=== PATIENT | female | born 1955 ===

== ENCOUNTER 2020-12-14 21:29 | Inpatient (IN) | payer MEDICARE, OTHER ==
[~2020-12-14] VITALS: Ht 157.5 cm; Wt 90.9 kg
--- NOTE | 2020-12-14 21:37 | NUR ---
PATIENT RA SAT 83 WALKING FROM EMS [facility] TO ED [facility]. PATIENT PLACED ON 3L O2 AND SAT INCRESASE TO 89
[2020-12-14] MEDS ORDERED: CALC-680 PO (22:03)
[2020-12-14] MEDS ORDERED: METO25TA91 PO (22:03)
[2020-12-14] MEDS ORDERED: ATOR-2 PO (22:03)
--- NOTE | 2020-12-14 22:30 | NUR ---
PATIENT RESTING ON GURCIARA, NAD AT THIS TIME, DENIES ANY NEEDS, VSS, WILL CONTINUE TO MONITOR.
--- NOTE | 2020-12-14 22:35 | NUR ---
Pt to be admitted to MEDICAL, room 339. Report called to DIANE.
[2020-12-14] MEDS ORDERED: PHARMACY MAY ADJ FOR RENAL FX MC PRN (23:30)
[2020-12-14 23:47] VITALS: BP 143/94
[2020-12-15] MEDS ORDERED: ACETAMINOPHEN 325 MG TABLET PO PRN
[2020-12-15] MEDS ORDERED: ONDANSETRON 2MG/ML, 2ML IVPush PRN
[2020-12-15 01:27] VITALS: BP 99/45
[2020-12-15] MEDS: ASCORBIC ACID 500 MG TABLET PO SCH ×3 (02:19→21:17)
[2020-12-15] MEDS: MELATONIN 5 MG TABLET PO SCH ×2 (02:19→21:17)
[2020-12-15 03:21] LABS: BASOPHILS % (AUTO) 0 % (0-1); EOSINOPHILS % (AUTO) 0 % (1-7); LYMPHOCYTES % (AUTO) 21 % (22-44); MEAN CORPUSCULAR HEMOGLOBIN 33.2 pg (27.0-34.8); MEAN CORPUSCULAR HGB CONC 34.6 g/dL (32.4-35.8); MEAN PLATELET VOLUME 8.1 fL (7.4-10.4); MONOCYTES % (AUTO) 4 % (2-9); NEUTROPHILS % (AUTO) 74 % (42-75); PLATELET COUNT 202 x10^3/uL (130-400); RED BLOOD COUNT 4.48 x10^6/uL (3.82-5.3); RED CELL DISTRIBUTION WIDTH 13.7 % (9.6-15.2)
[2020-12-15 03:22] LABS: HCT (SEDRATE) 42.6 % (34.6-47.8)
[2020-12-15 03:34] LABS: ALANINE AMINOTRANSFERASE 95 U/L (12-78); ALBUMIN 2.3 g/dL (3.4-5.0); ANION GAP 7 mmol/L (5-15); CALCIUM 7.6 mg/dL (8.5-10.1); CHLORIDE 104 mmol/L (98-107); CREATININE 0.71 mg/dL (0.55-1.02)
[2020-12-15 03:37] LABS: D-DIMER 1.12 ug/mlFEU (0.00-0.52)
[2020-12-15 03:51] LABS: ALKALINE PHOSPHATASE 63 U/L (45-117); BILIRUBIN,TOTAL 0.4 mg/dL (0.2-1.0); CREATINE KINASE, TOTAL 93 U/L (26-192); TOTAL PROTEIN 6.8 g/dL (6.4-8.2)
[2020-12-15] MEDS ORDERED: REMDESIVIR 200 MG in SODIUM CHLORIDE 0.9% 250 ML IVPB ONE (04:00)
[2020-12-15] MEDS: INSULIN LISPRO 100 UNITS/ML, PEN SQ-INSULIN SCH ×4 (07:00→21:38)
[2020-12-15] MEDS: DEXAMETHASONE 4 MG/ML, 1ML IVPush SCH (08:40)
[2020-12-15] MEDS: ZINC SULFATE 220 MG CAPSULE PO SCH (08:40)
[2020-12-15] MEDS: SODIUM CHLORIDE 0.9% 1,000 ML IV SCH ×2 (08:40→18:03)
[2020-12-15] MEDS: CHOLECALCIFEROL 5,000u TAB PO SCH (08:40)
[2020-12-15] MEDS: ENOXAPARIN 40 MG/0.4 ML SQ SCH (08:41)
[2020-12-15 09:00] VITALS: BP 116/64
[2020-12-15] MEDS ORDERED: REMDESIVIR 100 MG IV SCH (09:00)
[2020-12-15 14:00] VITALS: BP 107/62
[2020-12-15 20:09] VITALS: BP 98/57
[2020-12-16 01:58] VITALS: BP 102/54
[2020-12-16] MEDS: REMDESIVIR 100 MG in SODIUM CHLORIDE 0.9% 250 ML IVPB SCH (04:07)
[2020-12-16 05:12] LABS: BASOPHILS % (AUTO) 0 % (0-1); EOSINOPHILS % (AUTO) 0 % (1-7); LYMPHOCYTES % (AUTO) 19 % (22-44); MEAN CORPUSCULAR HEMOGLOBIN 33.5 pg (27.0-34.8); MEAN CORPUSCULAR HGB CONC 34.9 g/dL (32.4-35.8); MONOCYTES % (AUTO) 11 % (2-9); NEUTROPHILS % (AUTO) 71 % (42-75); PLATELET COUNT 239 x10^3/uL (130-400); RED BLOOD COUNT 4.28 x10^6/uL (3.82-5.3); RED CELL DISTRIBUTION WIDTH 13.8 % (9.6-15.2)
[2020-12-16 05:13] LABS: HCT (SEDRATE) 41.1 % (34.6-47.8)
[2020-12-16 05:24] LABS: ALANINE AMINOTRANSFERASE 86 U/L (12-78); ALBUMIN 2.1 g/dL (3.4-5.0); ANION GAP 7 mmol/L (5-15); CALCIUM 7.8 mg/dL (8.5-10.1); CHLORIDE 109 mmol/L (98-107); CREATININE 0.58 mg/dL (0.55-1.02)
[2020-12-16 05:47] LABS: ALKALINE PHOSPHATASE 63 U/L (45-117); BILIRUBIN,TOTAL 0.3 mg/dL (0.2-1.0); CREATINE KINASE, TOTAL 72 U/L (26-192); TOTAL PROTEIN 6.3 g/dL (6.4-8.2)
[2020-12-16] MEDS: INSULIN LISPRO 100 UNITS/ML, PEN SQ-INSULIN SCH ×4 (07:00→20:29)
[2020-12-16 07:54] VITALS: BP 111/51
[2020-12-16] MEDS: ASCORBIC ACID 500 MG TABLET PO SCH ×2 (09:20→20:22)
[2020-12-16] MEDS: CHOLECALCIFEROL 5,000u TAB PO SCH (09:20)
[2020-12-16] MEDS: ZINC SULFATE 220 MG CAPSULE PO SCH (09:20)
[2020-12-16] MEDS: ENOXAPARIN 40 MG/0.4 ML SQ SCH (09:20)
[2020-12-16] MEDS: DEXAMETHASONE 4 MG/ML, 1ML IVPush SCH (09:20)
[2020-12-16 13:56] VITALS: BP 106/55
[2020-12-16 19:30] VITALS: BP 112/56
[2020-12-16] MEDS: MELATONIN 5 MG TABLET PO SCH (20:22)
[2020-12-17 02:16] VITALS: BP 109/68
[2020-12-17] MEDS: REMDESIVIR 100 MG in SODIUM CHLORIDE 0.9% 250 ML IVPB SCH (04:14)
[2020-12-17 05:31] LABS: BASOPHILS % (AUTO) 0 % (0-1); EOSINOPHILS % (AUTO) 0 % (1-7); LYMPHOCYTES % (AUTO) 15 % (22-44); MEAN CORPUSCULAR HEMOGLOBIN 33.1 pg (27.0-34.8); MEAN CORPUSCULAR HGB CONC 34.4 g/dL (32.4-35.8); MEAN PLATELET VOLUME 8.2 fL (7.4-10.4); MONOCYTES % (AUTO) 11 % (2-9); NEUTROPHILS % (AUTO) 74 % (42-75); PLATELET COUNT 251 x10^3/uL (130-400); RED BLOOD COUNT 4.19 x10^6/uL (3.82-5.3); RED CELL DISTRIBUTION WIDTH 13.8 % (9.6-15.2)
[2020-12-17 05:43] LABS: CALCIUM 7.8 mg/dL (8.5-10.1); CHLORIDE 108 mmol/L (98-107); D-DIMER 0.87 ug/mlFEU (0.00-0.52)
[2020-12-17 06:07] LABS: ALANINE AMINOTRANSFERASE 74 U/L (12-78); ALBUMIN 2.1 g/dL (3.4-5.0); ALKALINE PHOSPHATASE 61 U/L (45-117); ANION GAP 5 mmol/L (5-15); BILIRUBIN,TOTAL 0.4 mg/dL (0.2-1.0); CREATINE KINASE, TOTAL 56 U/L (26-192); CREATININE 0.41 mg/dL (0.55-1.02)
[2020-12-17 07:54] VITALS: BP 132/64
[2020-12-17] MEDS: INSULIN LISPRO 100 UNITS/ML, PEN SQ-INSULIN SCH ×4 (09:09→21:16)
[2020-12-17] MEDS: DEXAMETHASONE 4 MG/ML, 1ML IVPush SCH (09:11)
[2020-12-17] MEDS: ZINC SULFATE 220 MG CAPSULE PO SCH (09:11)
[2020-12-17] MEDS: ASCORBIC ACID 500 MG TABLET PO SCH ×2 (09:12→21:15)
[2020-12-17] MEDS: CHOLECALCIFEROL 5,000u TAB PO SCH (09:12)
[2020-12-17] MEDS: ENOXAPARIN 40 MG/0.4 ML SQ SCH (11:27)
[2020-12-17 12:14] VITALS: BP 114/63
[2020-12-17 19:23] VITALS: BP 130/53
[2020-12-17] MEDS: MELATONIN 5 MG TABLET PO SCH (21:15)
[2020-12-18 00:43] VITALS: BP 111/53
[2020-12-18] MEDS: REMDESIVIR 100 MG in SODIUM CHLORIDE 0.9% 250 ML IVPB SCH (03:58)
[2020-12-18 05:33] LABS: ALBUMIN 2.1 g/dL (3.4-5.0); ANION GAP 5 mmol/L (5-15); C-REACTIVE PROTEIN, QUANT 0.63 mg/dL (0.02-0.49); CHLORIDE 106 mmol/L (98-107)
[2020-12-18 05:44] LABS: ALANINE AMINOTRANSFERASE 62 U/L (12-78); ALKALINE PHOSPHATASE 62 U/L (45-117); BILIRUBIN,TOTAL 0.5 mg/dL (0.2-1.0); CREATINE KINASE, TOTAL 46 U/L (26-192); CREATININE 0.42 mg/dL (0.55-1.02)
[2020-12-18 05:47] LABS: HCT (SEDRATE) 40.5 % (34.6-47.8); MEAN CORPUSCULAR HEMOGLOBIN 32.8 pg (27.0-34.8); MEAN CORPUSCULAR HGB CONC 34.2 g/dL (32.4-35.8); MEAN PLATELET VOLUME 8.5 fL (7.4-10.4); PLATELET COUNT 284 x10^3/uL (130-400); RED BLOOD COUNT 4.32 x10^6/uL (3.82-5.3); RED CELL DISTRIBUTION WIDTH 13.8 % (9.6-15.2)
[2020-12-18 06:38] LABS: LYMPH#(MANUAL) 1.35 x10^3/uL (1-3.4); LYMPHS% (MANUAL) 19 % (22-44); MONOS#(MANUAL) 0.71 x10^3/uL (0.3-2.7); MONOS% (MANUAL) 10 % (2-9); SEG#(MANUAL) 5.04 x10^3/uL (1.8-6.8); SEGS% (MANUAL) 71 % (42-75)
[2020-12-18 06:39] LABS: <PLATELET ESTIMATE> ADEQUATE; <PLT MORPHOLOGY> NORMAL PLT MORPH; <RBC MORPHOLOGY> NORMAL
[2020-12-18 07:38] VITALS: BP 120/56
[2020-12-18] MEDS: ASCORBIC ACID 500 MG TABLET PO SCH ×2 (08:13→20:51)
[2020-12-18] MEDS: ZINC SULFATE 220 MG CAPSULE PO SCH (08:13)
[2020-12-18] MEDS: CHOLECALCIFEROL 5,000u TAB PO SCH (08:13)
[2020-12-18] MEDS: DEXAMETHASONE 4 MG/ML, 1ML IVPush SCH (09:29)
[2020-12-18] MEDS: INSULIN LISPRO 100 UNITS/ML, PEN SQ-INSULIN SCH ×4 (09:29→20:51)
[2020-12-18] MEDS: ENOXAPARIN 40 MG/0.4 ML SQ SCH (09:29)
[2020-12-18 14:55] VITALS: BP 112/65
[2020-12-18 19:57] VITALS: BP 123/58
[2020-12-18] MEDS: MELATONIN 5 MG TABLET PO SCH (20:51)
[2020-12-19 01:04] VITALS: BP 121/54
[2020-12-19] MEDS: REMDESIVIR 100 MG in SODIUM CHLORIDE 0.9% 250 ML IVPB SCH (03:25)
[2020-12-19 04:47] LABS: BASOPHILS % (AUTO) 0 % (0-1); EOSINOPHILS % (AUTO) 0 % (1-7); LYMPHOCYTES % (AUTO) 23 % (22-44); MEAN CORPUSCULAR HEMOGLOBIN 32.6 pg (27.0-34.8); MEAN PLATELET VOLUME 7.9 fL (7.4-10.4); MONOCYTES % (AUTO) 14 % (2-9); NEUTROPHILS % (AUTO) 63 % (42-75); PLATELET COUNT 304 x10^3/uL (130-400); RED BLOOD COUNT 4.46 x10^6/uL (3.82-5.3); RED CELL DISTRIBUTION WIDTH 13.7 % (9.6-15.2)
[2020-12-19 04:50] LABS: HCT (SEDRATE) 41.9 % (34.6-47.8)
[2020-12-19 04:57] LABS: ALANINE AMINOTRANSFERASE 56 U/L (12-78); ALBUMIN 2.1 g/dL (3.4-5.0); ANION GAP 4 mmol/L (5-15); C-REACTIVE PROTEIN, QUANT 0.36 mg/dL (0.02-0.49); CALCIUM 8.1 mg/dL (8.5-10.1); CHLORIDE 104 mmol/L (98-107); CREATININE 0.44 mg/dL (0.55-1.02); D-DIMER 0.98 ug/mlFEU (0.00-0.52)
[2020-12-19 05:02] LABS: ALKALINE PHOSPHATASE 64 U/L (45-117); BILIRUBIN,TOTAL 0.6 mg/dL (0.2-1.0); CREATINE KINASE, TOTAL 34 U/L (26-192); TOTAL PROTEIN 6.1 g/dL (6.4-8.2)
[2020-12-19] MEDS: INSULIN LISPRO 100 UNITS/ML, PEN SQ-INSULIN SCH ×2 (07:00→11:03)
[2020-12-19 07:42] VITALS: BP 136/64
[2020-12-19] MEDS: ZINC SULFATE 220 MG CAPSULE PO SCH (10:56)
[2020-12-19] MEDS: CHOLECALCIFEROL 5,000u TAB PO SCH (10:56)
[2020-12-19] MEDS: DEXAMETHASONE 4 MG/ML, 1ML IVPush SCH (10:56)
[2020-12-19] MEDS: ASCORBIC ACID 500 MG TABLET PO SCH (10:56)
[2020-12-19] MEDS: ENOXAPARIN 40 MG/0.4 ML SQ SCH (11:03)
[2020-12-19] MEDS ORDERED: ASCO500T9 PO (12:19)
[2020-12-19] MEDS ORDERED: DEXA6TAB6 PO (12:19)
[2020-12-19] MEDS ORDERED: ZINC220C8 PO (12:19)
[2020-12-19] MEDS ORDERED: METF500T17 PO (12:25)
[2020-12-19 12:29] VITALS: BP 118/65
== END 2020-12-19 21:00 | disposition home or self-care (01) | DRG 177 ==
LOC: ED 22:00 → EDIP 22:22 → 3N 23:01
PROVIDERS: ADMIT Internal Medicine; ATTEND Internal Medicine
PROC: XW033E5 Introduction of Remdesivir Anti-infective into Peripheral Vein, Percutaneous Approach, New Technology Group 5 (ICD-10-PCS; principal; 2020-12-15)
DX: U07.1 COVID-19 (principal); J96.01 Acute respiratory failure with hypoxia; J12.82 Pneumonia due to coronavirus disease 2019; R74.01 Elevation of levels of liver transaminase levels; E11.9 Type 2 diabetes mellitus without complications; E78.5 Hyperlipidemia, unspecified; I10 Essential (primary) hypertension; Z87.891 Personal history of nicotine dependence
CPT/HCPCS: 36415; 80053; 82550; 82728; 82962; 84145; 85025; 85379; 85384; 85651; 86140; 93005; 96374; G0378; J1100; J1650; J1815; J7030; J7050